=== PATIENT | female | born 1955 | race Caucasian/White ===

== ENCOUNTER 2016-12-27 16:43 | Emergency (ER) | payer MEDICARE ==
[2016-12-27 16:54] VITALS: TEMP 97.7
[2016-12-27] MEDS ORDERED: methylPREDNISolone SOD SUCCI 125 MG/2 ML VIAL IV STA (18:16)
[2016-12-27] MEDS ORDERED: IPRATROPIUM-ALBUTEROL 3 ML NEB INHALATION STA (18:16)
--- NOTE | 2016-12-27 18:21 | ED ---
General Adult HPI - General Chief complaint: Upper Respiratory Infection Stated complaint: Right Shoulder Pain Time Seen by Provider: 12/27/16 17:57 Source: patient Mode of arrival: ambulatory Limitations: no limitations - History of Present Illness Initial comments: Patient is a 61-year-old female with history of tobacco abuse, CAD, COPD, hypertension presenting with 3 days of cough, congestion, shortness of breath. Patient states worsening cough and shortness of breath. She describes sputum as green. She denies runny nose, fever and chills. Patient tried her inhaler without any relief. Patient admits to sick contacts at home. Denies chest pain , nausea, vomiting, diarrhea, abdominal pain. Patient denies influenza vaccination. Patient states she had a pneumonia vaccine. Patient denies history of DVT/PE, estrogen use, recent travel/trauma/surgery, cancer. - Related Data Home Medications Medication Instructions Recorded Confirmed Dextroamphetamine/Amphetamine 30 mg PO BID 03/11/16 12/27/16 [Adderall] HYDROcodone/APAP 10-325MG [[place] 1 tab PO BID PRN 03/11/16 12/27/16 10-325] LORazepam [Ativan] 1 mg PO TID PRN 03/11/16 12/27/16 Lisinopril [Zestril] 20 mg PO DAILY 03/11/16 12/27/16 Methadone [Dolophine] 30 mg PO TID 03/11/16 12/27/16 Metoprolol Tartrate [Lopressor] 25 mg PO DAILY 03/11/16 12/27/16 Nitroglycerin Sl Tabs [Nitrostat] 0.4 mg SUBLINGUAL Q5M PRN 03/11/16 12/27/16 Omeprazole 20 mg PO DAILY 03/11/16 12/27/16 Atorvastatin [Lipitor] 10 mg PO HS 12/27/16 12/27/16 Hydroxychloroquine Sulfate 200 mg PO DAILY 12/27/16 12/27/16 [Plaquenil] Mometasone/Formoterol [Dulera 200 2 puff INHALATION RT-BID 12/27/16 12/27/16 Mcg/5 Mcg Inhaler] Venlafaxine HCl ER [Effexor Xr] 75 mg PO DAILY 12/27/16 12/27/16 rOPINIRole HCL [Requip] 0.5 mg PO HS 12/27/16 12/27/16 Previous Rx's Medication Instructions Recorded Levofloxacin [Levaquin] 750 mg PO DAILY #5 tab 12/27/16 predniSONE 40 mg PO DAILY #10 tab 12/27/16 Allergies Allergy/AdvReac Type Severity Reaction Status Date / Time No Known Allergies Allergy Verified 12/27/16 18:07 Review of Systems ROS Statement: Those systems with pertinent positive or pertinent negative responses have been documented in the HPI. Constitutional: No fever and no chills. HENT: +congestion, no rhinorrhea and no sore throat. Eyes: No discharge and no redness. Respiratory: +cough and +shortness of breath. Cardiovascular: No chest pain and no palpitations. Gastrointestinal: No nausea, no vomiting, no abdominal pain and no diarrhea. Genitourinary: No dysuria and no hematuria. Musculoskeletal: No back pain and no arthralgias. Skin: No pallor and no rash. Neurological: No dizziness and No headaches. ROS Other: All systems not noted in ROS Statement are negative. Past Medical History Past Medical History: Coronary Artery Disease (CAD), Chest Pain / Angina, COPD, Fibromyalgia, Hypertension, Renal Disease Additional Past Medical History / Comment(s): lupus History of Any Multi-Drug Resistant Organisms: None Reported Past Surgical History: Hysterectomy Additional Past Surgical History / Comment(s): esophagheal sinus surg Past Psychological History: Depression Smoking Status: Current every day smoker Past Alcohol Use History: None Reported Past Drug Use History: None Reported General Exam - General Exam Comments Initial Comments: Constitutional: Patient appears well-developed and well-nourished. No distress. Head: Normocephalic and atraumatic. Eyes: Conjunctivae and EOM are normal. Right eye exhibits no discharge. Left eye exhibits no discharge. No scleral icterus. Neck: Normal range of motion. Neck supple. Cardiovascular: Normal rate and regular rhythm. No murmur heard. Pulmonary/Chest: Effort normal and breath sounds normal. No respiratory distress. No wheezes. Abdominal: Soft. No distension. There is no tenderness. There is no rebound and no guarding. Musculoskeletal: Normal range of motion. No edema or tenderness. Neurological: Patient alert and oriented to person, place, and time. Skin: Skin is warm and dry. Not diaphoretic. Nursing notes and vitals reviewed. Limitations: no limitations Course Vital Signs 12/27/16 12/27/16 12/27/16 16:52 17:27 18:41 Temperature 97.7 F Pulse Rate 70 57 L Respiratory 20 14 15 Rate Blood Pressure 179/80 182/91 O2 Sat by Pulse 99 97 Oximetry 12/27/16 12/27/16 12/27/16 19:00 19:08 19:20 Temperature Pulse Rate 60 68 Respiratory 14 Rate Blood Pressure 182/91 O2 Sat by Pulse 98 Oximetry 12/27/16 12/27/16 12/27/16 19:21 19:39 19:52 Temperature Pulse Rate 68 67 76 Respiratory 14 Rate Blood Pressure O2 Sat by Pulse 98 Oximetry 12/27/16 22:15 Temperature Pulse Rate 70 Respiratory 14 Rate Blood Pressure 160/70 O2 Sat by Pulse 98 Oximetry EKG Findings - EKG Comments: EKG Findings:: Rate 58. Sinus bradycardia. No ST-T wave changes. HI internal normal . QRS interval normal. QTc duration normal. Medical Decision Making - Medical Decision Making Patient is a 61-year-old female with history of tobacco abuse, CAD, COPD, fibromyalgia, hypertension, lupus presenting with cough, shortness breath, congestion the past 3 days. Patient was not wheezing or any respiratory crackles on exam. She was given breathing treatments and steroids with some improvement. Laboratory work showed an unremarkable CBC, BMP, troponin, magnesium. Influenza was negative. D-dimer was mildly elevated at 0.52. Chest x-ray was unremarkable. EKG shows sinus bradycardia without ST or T-wave changes.. Given patient's mildly elevated d-dimer, history of lupus, age greater than 50 as well as complaints of shortness of breath without any identification of wheezing or crackles a CTA was ordered. CTA was unremarkable for PE. CT did show a hiatal hernia. CT shows showed a right lateral lower lobe pneumonia. Patient without history of hospitalization or detention stay in the last 3 months. Prior to discharge, patient was resting comfortably in bed. Course of stay improved. Denies pain. Discussed physical exam and diagnostic tests with patient. Questions answered and patient is agreeable to discharge with close follow up with Primary Care Physician. Instructed to return to Emergency Department if symptoms worsen. - Lab Data Result diagrams: 12/27/16 18:43 12/27/16 18:43 Lab Results 12/27/16 12/27/16 12/27/16 Range/Units 18:43 18:43 18:43 WBC 5.4 (3.8-10.6) k/uL RBC 3.98 (3.80-5.40) m/uL Hgb 12.2 (11.4-16.0) gm/dL Hct 36.8 (34.0-46.0) % MCV 92.4 (80.0-100.0) fL MCH 30.7 (25.0-35.0) pg MCHC 33.3 (31.0-37.0) g/dL RDW 13.1 (11.5-15.5) % Plt Count 220 (150-450) k/uL Neutrophils % 48 % Lymphocytes % 34 % Monocytes % 8 % Eosinophils % 6 % Basophils % 1 % Neutrophils # 2.6 (1.3-7.7) k/uL Lymphocytes # 1.8 (1.0-4.8) k/uL Monocytes # 0.5 (0-1.0) k/uL Eosinophils # 0.3 (0-0.7) k/uL Basophils # 0.0 (0-0.2) k/uL D-Dimer 0.52 (<0.60) mg/L FEU Sodium 142 (137-145) mmol/L Potassium 4.6 (3.5-5.1) mmol/L Chloride 104 (98-107) mmol/L Carbon Dioxide 28 (22-30) mmol/L Anion Gap 10 mmol/L BUN 12 (7-17) mg/dL Creatinine 0.99 (0.52-1.04) mg/dL Est GFR (MDRD) Af Amer >60 (>60 ml/min/1.73 sqM) Est GFR (MDRD) Non-Af 57 (>60 ml/min/1.73 sqM) Glucose 75 (74-99) mg/dL Calcium 8.9 (8.4-10.2) mg/dL Magnesium 1.8 (1.6-2.3) mg/dL Troponin I (0.000-0.034) ng/mL Influenza Type A RNA (Not Detectd) Influenza Type B (PCR) (Not Detectd) 12/27/16 12/27/16 Range/Units 18:43 20:00 WBC (3.8-10.6) k/uL RBC (3.80-5.40) m/uL Hgb (11.4-16.0) gm/dL Hct (34.0-46.0) % MCV (80.0-100.0) fL MCH (25.0-35.0) pg MCHC (31.0-37.0) g/dL RDW (11.5-15.5) % Plt Count (150-450) k/uL Neutrophils % % Lymphocytes % % Monocytes % % Eosinophils % % Basophils % % Neutrophils # (1.3-7.7) k/uL Lymphocytes # (1.0-4.8) k/uL Monocytes # (0-1.0) k/uL Eosinophils # (0-0.7) k/uL Basophils # (0-0.2) k/uL D-Dimer (<0.60) mg/L FEU Sodium (137-145) mmol/L Potassium (3.5-5.1) mmol/L Chloride (98-107) mmol/L Carbon Dioxide (22-30) mmol/L Anion Gap mmol/L BUN (7-17) mg/dL Creatinine (0.52-1.04) mg/dL Est GFR (MDRD) Af Amer (>60 ml/min/1.73 sqM) Est GFR (MDRD) Non-Af (>60 ml/min/1.73 sqM) Glucose (74-99) mg/dL Calcium (8.4-10.2) mg/dL Magnesium (1.6-2.3) mg/dL Troponin I <0.012 (0.000-0.034) ng/mL Influenza Type A RNA Not Detected (Not Detectd) Influenza Type B (PCR) Not Detected (Not Detectd) Disposition Clinical Impression: Community acquired pneumonia, Pneumonia Disposition: HOME SELF-CARE Condition: Good Instructions: Upper Respiratory Infection (ED), Bacterial Pneumonia (ED) Prescriptions: Levofloxacin [Levaquin] 750 mg PO DAILY #5 tab predniSONE 40 mg PO DAILY #10 tab Referrals: Nael Che MD [Primary Care Provider] - 1-2 days
--- NOTE | 2016-12-27 19:00 | XR ---
EXAMINATION TYPE: XR chest 2V DATE OF EXAM: 12/27/2016 6:53 PM COMPARISON: 09/14/2013 HISTORY: Cough and congestion TECHNIQUE: Frontal and lateral views of the chest are obtained. FINDINGS: Heart and mediastinum are normal. Lungs are clear. Diaphragm is normal. Bony thorax is int act. IMPRESSION: Normal chest. No change.
[2016-12-27 19:42] LABS: Basophils % (A) 1 %; CH 30.7; CHCM 33.3; Eosinophils # (A) 0.3 k/uL (0-0.7); Eosinophils % (A) 6 %; HCT 36.8 % (34.0-46.0); HDW 2.63; HGB 12.2 gm/dL (11.4-16.0); Luc # (Auto) 0.16; Luc % (Auto) 3; Lymphocytes # (A) 1.8 k/uL (1.0-4.8); Lymphocytes % (A) 34 %; MCH 30.7 pg (25.0-35.0); MCHC 33.3 g/dL (31.0-37.0); MCV 92.4 fL (80.0-100.0); Mean Platelet Volume 6.4; Monocytes # (A) 0.5 k/uL (0-1.0); Monocytes % (A) 8 %; Neutrophils # (A) 2.6 k/uL (1.3-7.7); Neutrophils % (A) 48 %; RBC 3.98 m/uL (3.80-5.40); RDW 13.1 % (11.5-15.5); WBC 5.4 k/uL (3.8-10.6)
[2016-12-27 19:53] VITALS: RESP 14
[2016-12-27 20:04] LABS: Anion Gap 10 mmol/L; Blood Urea Nitrogen 12 mg/dL (7-17); Calcium 8.9 mg/dL (8.4-10.2); Carbon Dioxide 28 mmol/L (22-30); Chloride 104 mmol/L (98-107); Glucose 75 mg/dL (74-99); Magnesium 1.8 mg/dL (1.6-2.3); Non-African American GFR(MDRD) 57 (>60 ml/min/1.73 sqM); Potassium 4.6 mmol/L (3.5-5.1); Sodium 142 mmol/L (137-145)
[2016-12-27] MEDS ORDERED: RX INFO: IV CONTRAST WAS GIVEN 1 EACH MISC MISCELLANE PRN (20:46)
--- NOTE | 2016-12-27 21:58 | CT ---
EXAMINATION TYPE: CT angio chest DATE OF EXAM: 12/27/2016 9:41 PM COMPARISON: 01/24/2013 HISTORY: shortness of breath CT DLP: 167.4 mGycm Automated exposure control for dose reduction was used. CONTRAST: CTA scan of the thorax is performed with IV Contrast, patient injected with 100 mL of Omnipaque 350, pulmonary embolism protocol. . FINDINGS: There are mild emphysematous changes in the upper lobes. Heart size is normal. There is no pericardial effusion. There is a moderate hiatal hernia. There is a patchy area of infiltrate at the right lung base. There are no filling defects in the pulmonary keely alex. There is no evidence of aortic aneurysm or dissection. There is no mediastinal adenopathy. Ther e are no hilar masses. IMPRESSION: NO EVIDENCE OF PULMONARY EMBOLISM. HIATAL HERNIA. THERE IS SOME PATCHY PNEUMONIA IN THE LATERAL BASAL SEGMENT OF THE RIGHT LOWER LOBE THAT IS NEW COMPARED TO OLD EXAM. THERE IS CLEARING OF INFILTRATE IN THE POSTERIOR RIGHT LOWER LOBE COMPARED TO OLD EXAM. EMPHYSEMA.
[2016-12-27 22:16] VITALS: BP 160/70; PULSE 70
== END 2016-12-27 22:15 | disposition home or self-care (01) ==
LOC: EC 16:43
DX: J18.9 Pneumonia, unspecified organism (principal); M32.9 Systemic lupus erythematosus, unspecified; I10 Essential (primary) hypertension; M79.7 Fibromyalgia; J44.9 Chronic obstructive pulmonary disease, unspecified; I25.10 Atherosclerotic heart disease of native coronary artery without angina pectoris; Z79.899 Other long term (current) drug therapy; F32.9 Major depressive disorder, single episode, unspecified; F17.200 Nicotine dependence, unspecified, uncomplicated; K44.9 Diaphragmatic hernia without obstruction or gangrene
CPT/HCPCS: 36415; 94640 ×2; 93005; 85379; 80048; 83735; 84484; 85025; 87502; 71020; 71275; 99285; 96374; J2930; Q9967

== ENCOUNTER 2017-02-27 09:40 | Day surgery (SDC) | payer MEDICARE ==
[2017-02-26 09:42] VITALS: BMI 24.3
[~2017-02-27 09:40] MED LIST: LACTATED RINGERS 1,000 ML IV SCH
[2017-02-27 09:55] VITALS: RESP 18; TEMP 98
[2017-02-27] MEDS ORDERED: LIDOCAINE 1% 20 ML VIAL (10MG/ML) FOR IV START INTRADERMA ONE (09:55)
[2017-02-27] MEDS ORDERED: LACTATED RINGERS 1,000 ML IV ONE (09:55)
[2017-02-27] MEDS ORDERED: PROPOFOL 10 MG/ML 20 ML VIAL IV ONE (10:36)
[2017-02-27] MEDS ORDERED: LIDOCAINE 1% INJ 10MG/ML (20 ML MDV) ONE (10:36)
[2017-02-27] MEDS ORDERED: GLYCOPYRROLATE 0.2 MG/ML 2 ML VIAL ONE (10:36)
--- NOTE | 2017-02-27 10:49 | P.PCN ---
Date of Procedure: 02/27/17 Procedure(s) Performed: BRIEF HISTORY: Patient is a 62-year-old, pleasant, white female, scheduled for an upper endoscopy as a part of evaluation of intermittent dysphagia to solids for the last few months duration. She is hence scheduled for an upper endoscopy with a possible dilation today. She has history of GERD and is on omeprazole 20 mg daily. PROCEDURE PERFORMED: Esophagogastroduodenoscopy with dilation. PREOPERATIVE DIAGNOSIS: Intermittent dysphagia to solids and GERD. IV sedation per anesthesia. PROCEDURE: After informed consent was obtained, the patient was brought into the endoscopy unit. IV sedation was administered by Anesthesia under continuous monitoring. Initially the Olympus GIF-140 video endoscope was inserted into the mouth. Esophagus intubated without any difficulty. It was gradually advanced into the stomach and duodenum and carefully examined. The bulb and the second part of the duodenum appeared normal. The scope at this time was withdrawn to the stomach, adequately insufflated with air, and upon careful examination, mucosa of the antrum, body, cardia and the fundus appeared normal. The scope was then withdrawn into the esophagus. The GE junction was located at 35 cm from the incisors. Small to moderate size hiatal hernia noted. There was a widely patent distal esophageal Schatzki's ring identified. At this time this was dilated using 18-20 mm balloon. Initially it was dilated to 18 mm for total of 1 minute following with some oozing was identified and hence further dilation was not performed. The rest of the esophagus appeared normal. There were no erosions or ulcerations seen and the patient tolerated the procedure well. IMPRESSION: 1. Distal esophageal Schatzki's ring status post balloon dilation using 18 mm TTS balloon as described above. 2. Small to moderate size hiatal hernia. RECOMMENDATIONS: The findings of this examination were discussed with the patient as well as her family. She was advised to be on a clear liquid diet and advance as tolerated. She will remain on Prilosec 20 mg daily and follow antireflux measures.
[2017-02-27 11:09] VITALS: BP 120/74; PULSE 78
== END 2017-02-27 11:45 | disposition home or self-care (01) ==
LOC: ORWHC2ENDO 09:40
PROVIDERS: ATTEND Internal Medicine Gastroenterology
DX: K22.2 Esophageal obstruction (principal); K21.9 Gastro-esophageal reflux disease without esophagitis; K44.9 Diaphragmatic hernia without obstruction or gangrene; I25.10 Atherosclerotic heart disease of native coronary artery without angina pectoris; I10 Essential (primary) hypertension; E78.5 Hyperlipidemia, unspecified; J44.9 Chronic obstructive pulmonary disease, unspecified; F17.200 Nicotine dependence, unspecified, uncomplicated; F32.9 Major depressive disorder, single episode, unspecified; G89.29 Other chronic pain; Z79.899 Other long term (current) drug therapy; Z90.710 Acquired absence of both cervix and uterus; Z79.51 Long term (current) use of inhaled steroids
CPT/HCPCS: 43249; J2001; J2704; C1726

== ENCOUNTER → 2017-04-28 | Outpatient (CLI) | payer MEDICARE ==
[2017-04-28 11:16] LABS: CH 31.2; CHCM 32.8; HCT 38.7 % (34.0-46.0); HDW 2.38; HGB 12.6 gm/dL (11.4-16.0); MCH 31.1 pg (25.0-35.0); MCHC 32.5 g/dL (31.0-37.0); MCV 95.8 fL (80.0-100.0); RBC 4.04 m/uL (3.80-5.40); WBC 6.5 k/uL (3.8-10.6)
[2017-04-28 11:23] LABS: Calcium 9.6 mg/dL (8.4-10.2); Potassium 4.6 mmol/L (3.5-5.1); Total Bilirubin 0.7 mg/dL (0.2-1.3); Total Protein 7.4 g/dL (6.3-8.2)
== END | disposition home or self-care (01) ==
LOC: LABWHC1 10:48
PROVIDERS: ATTEND Family Medicine
DX: I35.1 Nonrheumatic aortic (valve) insufficiency (principal); I25.10 Atherosclerotic heart disease of native coronary artery without angina pectoris; F17.210 Nicotine dependence, cigarettes, uncomplicated; Z71.6 Tobacco abuse counseling
CPT/HCPCS: 36415; 80053; 80061; 84443; 85027

== ENCOUNTER → 2017-06-25 | Outpatient (CLI) | payer MEDICARE ==
[2017-06-25 12:17] LABS: CHCM 33.7; HCT 36.1 % (34.0-46.0); HDW 2.62; HGB 12.4 gm/dL (11.4-16.0); MCH 31.7 pg (25.0-35.0); MCHC 34.3 g/dL (31.0-37.0); MCV 92.5 fL (80.0-100.0); Mean Platelet Volume 6.9; RBC 3.91 m/uL (3.80-5.40); RDW 13.4 % (11.5-15.5); WBC 5.1 k/uL (3.8-10.6)
[2017-06-25 12:25] LABS: Anion Gap 10 mmol/L; Blood Urea Nitrogen 17 mg/dL (7-17); Calcium 9.2 mg/dL (8.4-10.2); Carbon Dioxide 27 mmol/L (22-30); Chloride 106 mmol/L (98-107); Glucose 72 mg/dL (74-99); Non-African American GFR(MDRD) 50 (>60 ml/min/1.73 sqM); Potassium 4.2 mmol/L (3.5-5.1); Sodium 143 mmol/L (137-145)
[2017-06-25 15:21] LABS: Appearance,Urine Clear (Clear); Bilirubin,Urine Negative (Negative); Glucose,Urine (UA) Negative (Negative); Ketones,Urine Negative (Negative); Leukocyte Esterase,Urine Small (Negative); Mucus,Urine Rare /hpf; Nitrite,Urine Negative (Negative); PH, Urine 5.5 (5.0-8.0); Particle Count 3612; Protein,Urine Trace (Negative); Specific Gravity,Urine 1.021 (1.001-1.035); Squamous Epithelial Cell,Urine 3 /hpf (0-4); UA Billing (MACRO vs. MICRO) MICRO; Urobilinogen,Urine <2.0 mg/dL (<2.0); WBC,Urine 5 /hpf (0-5)
== END ==
LOC: LABWHC1 11:37
PROVIDERS: ATTEND Internal Medicine Nephrology
DX: N18.3 Chronic kidney disease, stage 3 (moderate) (principal); N25.81 Secondary hyperparathyroidism of renal origin
CPT/HCPCS: 36415; 80048; 80069; 81001; 82306; 82570; 83970; 84156; 85027

== ENCOUNTER → 2017-09-29 | Outpatient (CLI) | payer MEDICARE ==
--- NOTE | 2017-09-30 10:50 | MM ---
Reason for exam: screening (asymptomatic). Last mammogram was performed 1 year and 2 months ago. History: Patient is postmenopausal. Benign excisional biopsy of the right breast, 1995. Took estrogen for 16 years beginning at age 45. Physical Findings: A clinical breast exam by your physician is recommended on an annual basis and results should be correlated with mammographic findings. MG 3D Screening Mammo W/Cad Bilateral CC and MLO view(s) were taken. Prior study comparison: August 06, 2016, bilateral MG 3d screening mammo w/cad. September 23, 2013, bilateral digital screening mammo w/CAD. There are scattered fibroglandular densities. There is no discrete abnormality. ASSESSMENT: Negative, BI-RAD 1 RECOMMENDATION: Routine screening mammogram of both breasts in 1 year.
== END | disposition home or self-care (01) ==
LOC: RADMAMWWP 11:01
PROVIDERS: ATTEND Family Medicine
DX: Z12.31 Encounter for screening mammogram for malignant neoplasm of breast (principal)
CPT/HCPCS: 77063; G0202

== ENCOUNTER → 2017-09-29 | Outpatient (CLI) | payer MEDICARE ==
--- NOTE | 2017-09-29 12:57 | XR ---
Cervical spine HISTORY: Neck pain, radiculopathy 5 views of the cervical spine Multilevel facet arthropathy is noted. Multilevel foraminal encroachment is present due to lateral ex tension of endplates especially C3-4, C5-6. There is multilevel spondylosis. Cervical vertebral kamila s show preserved height and bone mineralization. Anterolisthesis grade 1 C2-3. Loss of disc height pr esent at the intervertebral levels C3-4, C4-5, C5-6 and C6-7. IMPRESSION: Degenerative disc disease. Consider cervical MRI.
--- NOTE | 2017-09-29 13:02 | XR ---
Lumbar spine HISTORY: Pain, radiculopathy 3 views of the lumbar spine There is a marked dextroscoliosis centered at L2. Rotatory component suspected. There is multilevel s pondylosis. Lumbar vertebral bodies show preserved height. Bone mineralization is mildly reduced. Los s of disc height present at the intervertebral levels especially L5-S1 there is associated vacuum phe nomenon. Sclerosis present in the posterior elements compatible with facet arthropathy. There are vas cular calcifications noted within the aorta and pelvis. IMPRESSION: Degenerative disc disease, facet arthropathy, rotatory scoliosis, osteopenia, additional findings above.
== END | disposition home or self-care (01) ==
LOC: RADXRMAIN 11:19
PROVIDERS: ATTEND Family Medicine
DX: M51.16 Intervertebral disc disorders with radiculopathy, lumbar region (principal); M50.30 Other cervical disc degeneration, unspecified cervical region; M46.86 Other specified inflammatory spondylopathies, lumbar region; M41.9 Scoliosis, unspecified; M85.80 Other specified disorders of bone density and structure, unspecified site
CPT/HCPCS: 72050; 72100

== ENCOUNTER → 2017-12-07 | Outpatient (CLI) | payer MEDICARE ==
[2017-12-07 10:11] LABS: HCT 37.9 % (34.0-46.0); HGB 12.5 gm/dL (11.4-16.0); MCH 31.3 pg (25.0-35.0); MCV 94.8 fL (80.0-100.0); Mean Platelet Volume 7.6; Platelet Count 215 k/uL (150-450); RDW 13.9 % (11.5-15.5); WBC 4.9 k/uL (3.8-10.6)
[2017-12-07 10:20] LABS: Calcium 9.4 mg/dL (8.4-10.2); Magnesium 1.8 mg/dL (1.6-2.3); Phosphorus 3.9 mg/dL (2.5-4.5); Potassium 4.5 mmol/L (3.5-5.1); Uric Acid 4.9 mg/dL (3.7-7.4)
[2017-12-07 10:33] LABS: Appearance,Urine Clear (Clear); Bilirubin,Urine Negative (Negative); Blood,Urine Negative (Negative); Color,Urine Yellow; Glucose,Urine (UA) Negative (Negative); Hyaline Casts,Urine 3 /lpf (0-2); Ketones,Urine Negative (Negative); Leukocyte Esterase,Urine Small (Negative); Mucus,Urine Rare /hpf; Nitrite,Urine Negative (Negative); PH, Urine 5.5 (5.0-8.0); Protein,Urine Trace (Negative); RBC,Urine 1 /hpf (0-5); Specific Gravity,Urine 1.021 (1.001-1.035); Squamous Epithelial Cell,Urine 2 /hpf (0-4); Urobilinogen,Urine <2.0 mg/dL (<2.0); WBC,Urine 2 /hpf (0-5)
[2017-12-07 10:53] LABS: Creatinine,Urine Random 198.4 mg/dL
[2017-12-07 15:07] LABS: Iron Saturation 17.61 (12.00-45.00)
[2017-12-07 15:16] LABS: Vitamin D 25 Hydroxy 31.7 ng/mL (30.0-100.0)
[2017-12-07 19:45] LABS: Parathyroid Hormone Intact 101.1 pg/mL (14.0-72.0)
== END | disposition home or self-care (01) ==
LOC: LABWHC1 09:41
PROVIDERS: ATTEND Nurse Practitioner Family
DX: N18.3 Chronic kidney disease, stage 3 (moderate) (principal); E83.10 Disorder of iron metabolism, unspecified; N25.81 Secondary hyperparathyroidism of renal origin; N39.0 Urinary tract infection, site not specified; D64.9 Anemia, unspecified; M10.9 Gout, unspecified; R80.9 Proteinuria, unspecified
CPT/HCPCS: 36415; 80048; 81001; 82306; 82570; 82728; 83540; 83550; 83735; 83970; 84100; 84156; 84550; 85027

== ENCOUNTER 2018-01-18 11:26 | Emergency (ER) | payer MEDICARE ==
[2018-01-18 11:40] VITALS: BP 134/77; PULSE 78; RESP 16; TEMP 98.7
--- NOTE | 2018-01-18 12:32 | XR ---
EXAMINATION TYPE: XR wrist complete LT DATE OF EXAM: 01/18/2018 CLINICAL HISTORY: Wrist pain for one week. TECHNIQUE: Frontal, lateral, scaphoid, and oblique images of the left wrist are obtained. COMPARISON: None FINDINGS: There is no acute fracture/dislocation evident in the left wrist. There is subchondral cys t in the radial aspect of the lunate. The joint spaces in the left wrist appear within normal limits. The overlying soft tissue appears unremarkable. IMPRESSION: There is no acute fracture or dislocation in the left wrist.
--- NOTE | 2018-01-18 12:33 | ED ---
Extremity Problem HPI - General Chief complaint: Extremity Problem,Nontraumatic Stated complaint: Wrist pain Time Seen by Provider: 01/18/18 12:02 Source: patient Mode of arrival: ambulatory Limitations: no limitations - History of Present Illness Initial comments: 62-year-old female patient presents to the emergency department today complaining of left dorsal wrist pain. Patient states that she has had the pain for the last week. She states that the pain came out of nowhere. She denies any injury to the hand or wrist. She states that it hurts whenever she flexes the wrist. She denies any numbness or tingling to the hand. Denies any burning type pain. States it is sharp at times, but mostly dull. She denies any previous injuries to the wrist. States she did take her home methadone for pain relief. Patient denies any headache, neck pain, back pain, chest pain, shortness of breath, dizziness, weakness, abdominal pain, nausea, vomiting, or difficulties with bowel movements or urination. - Related Data Home Medications Medication Instructions Recorded Confirmed Dextroamphetamine/Amphetamine 30 mg PO BID 03/11/16 01/18/18 [Adderall] HYDROcodone/APAP 10-325MG [[place] 1 tab PO DAILY PRN 03/11/16 01/18/18 10-325] LORazepam [Ativan] 1 mg PO HS 03/11/16 01/18/18 Lisinopril [Zestril] 20 mg PO DAILY 03/11/16 01/18/18 Methadone [Dolophine] 30 mg PO TID 03/11/16 01/18/18 Metoprolol Tartrate [Lopressor] 25 mg PO DAILY 03/11/16 01/18/18 Nitroglycerin Sl Tabs [Nitrostat] 0.4 mg SUBLINGUAL Q5M PRN 03/11/16 01/18/18 Omeprazole 20 mg PO DAILY 03/11/16 01/18/18 Atorvastatin [Lipitor] 10 mg PO HS 12/27/16 01/18/18 Hydroxychloroquine Sulfate 200 mg PO DAILY 12/27/16 01/18/18 [Plaquenil] Mometasone/Formoterol [Dulera 200 2 puff INHALATION RT-BID 12/27/16 01/18/18 Mcg/5 Mcg Inhaler] Venlafaxine HCl ER [Effexor Xr] 75 mg PO QAM 12/27/16 01/18/18 rOPINIRole HCL [Requip] 0.5 mg PO HS 12/27/16 01/18/18 Multivit-Min/FA/Lycopen/Lutein 1 tab PO DAILY 02/26/17 01/18/18 [Centrum Silver Tablet] Albuterol Inhaler [Ventolin Hfa 1 - 2 puff INHALATION RT-Q6H PRN 01/18/18 Inhaler] Doxepin HCl 50 mg PO HS 01/18/18 01/18/18 buPROPion XL [Wellbutrin Xl] 150 mg PO DAILY 01/18/18 01/18/18 Allergies Allergy/AdvReac Type Severity Reaction Status Date / Time No Known Allergies Allergy Verified 01/18/18 12:21 Review of Systems ROS Statement: Those systems with pertinent positive or pertinent negative responses have been documented in the HPI. ROS Other: All systems not noted in ROS Statement are negative. Past Medical History Past Medical History: Coronary Artery Disease (CAD), Chest Pain / Angina, COPD, Fibromyalgia, Hypertension, Renal Disease Additional Past Medical History / Comment(s): lupus History of Any Multi-Drug Resistant Organisms: None Reported Past Surgical History: Hysterectomy Additional Past Surgical History / Comment(s): esophagheal ,sinus surg Past Anesthesia/Blood Transfusion Reactions: No Reported Reaction Past Psychological History: Depression Smoking Status: Current every day smoker Past Alcohol Use History: None Reported Past Drug Use History: None Reported - Past Family History Mother Family Medical History: Cancer Additional Family Medical History / Comment(s): lung Father Family Medical History: No Reported History Additional Family Medical History / Comment(s): in MVA General Exam Limitations: no limitations General appearance: alert, in no apparent distress, other (This is a well- developed, well-nourished adult female patient in no acute distress. Vital signs upon presentation are temperature 98.7F, pulse 78, respirations 16, blood pressure 134/77, pulse ox 97% on room air.) Respiratory exam: Present: normal lung sounds bilaterally. Absent: respiratory distress, wheezes, rales, rhonchi, stridor Cardiovascular Exam: Present: regular rate, normal rhythm, normal heart sounds. Absent: systolic murmur, diastolic murmur, rubs, gallop, clicks Extremities exam: Present: normal inspection, full ROM, normal capillary refill , other (Patient exhibit some tenderness over the dorsum of the left wrist. Skin is pink, warm, and dry. Cap refill is less than 3 seconds. Radial pulses 2+ and equal bilaterally.). Absent: tenderness, pedal edema, joint swelling, calf tenderness Neurological exam: Present: alert, oriented X3, CN II-XII intact Psychiatric exam: Present: normal affect, normal mood Skin exam: Present: warm, dry, intact, normal color. Absent: rash Course Vital Signs 01/18/18 11:38 Temperature 98.7 F Pulse Rate 78 Respiratory 16 Rate Blood Pressure 134/77 O2 Sat by Pulse 97 Oximetry Medical Decision Making - Medical Decision Making 62-year-old female patient presents to the emergency department today for evaluation of left wrist pain. Physical examination is unremarkable. Patient does have full range of motion however with pain. Neurovascular status is intact. X-rays negative for any acute osseous abdomen is however does show a subchondral cyst over the radial aspect of the lunate. Did discuss the findings with the patient and informed her this could be contributing to her discomfort however she is instructed to follow-up with orthopedics for recheck in 1-2 days which is instructed to return here immediately for any new, worsening, or concerning symptoms. She verbalizes understanding and agrees with this plan. - Radiology Data Radiology results: report reviewed, image reviewed 4 views of the left wrist are obtained. There is no acute fracture dislocation evident. There is subchondral cyst in the radial aspect of the lunate. There are joint spaces in the left wrist appear within normal limits. The overlying soft tissue appears unremarkable. Impression by Dr. Goodman shows no acute fracture or dislocation of the left wrist. Disposition Clinical Impression: Subchondral bone cyst Disposition: HOME SELF-CARE Condition: Good Instructions: Arthralgia (ED) Additional Instructions: Continue taking home pain medication as directed for symptom relief. Take anti- inflammatory if you are able to take this, ibuprofen or naproxen are good choices. Follow-up with orthopedics for further evaluation. Return here immediately for any new, worsening, or concerning symptoms. Referrals: Nael Che MD [Primary Care Provider] - 1-2 days Jorge De La Cruz DO [Doctor of Osteopathic Medicine] - 1-2 days Time of Disposition: 12:42
== END 2018-01-18 12:49 | disposition home or self-care (01) ==
LOC: EC 11:26
DX: M85.432 Solitary bone cyst, left ulna and radius (principal); I25.119 Atherosclerotic heart disease of native coronary artery with unspecified angina pectoris; J44.9 Chronic obstructive pulmonary disease, unspecified; M79.7 Fibromyalgia; I10 Essential (primary) hypertension; F32.9 Major depressive disorder, single episode, unspecified; Z79.51 Long term (current) use of inhaled steroids; Z79.891 Long term (current) use of opiate analgesic; Z79.899 Other long term (current) drug therapy
CPT/HCPCS: 99283

== ENCOUNTER → 2018-06-11 | Outpatient (CLI) | payer MEDICARE ==
[2018-06-11 10:58] LABS: Appearance,Urine Clear (Clear); Bilirubin,Urine Negative (Negative); Blood,Urine Negative (Negative); Color,Urine Yellow; Glucose,Urine (UA) Negative (Negative); Ketones,Urine Negative (Negative); Leukocyte Esterase,Urine Negative (Negative); Nitrite,Urine Negative (Negative); PH, Urine 5.5 (5.0-8.0); Protein,Urine Negative (Negative); Specific Gravity,Urine 1.013 (1.001-1.035); Urobilinogen,Urine <2.0 mg/dL (<2.0)
[2018-06-11 11:09] LABS: HCT 38.3 % (34.0-46.0); HGB 12.4 gm/dL (11.4-16.0); MCH 29.7 pg (25.0-35.0); MCHC 32.5 g/dL (31.0-37.0); MCV 91.3 fL (80.0-100.0); Mean Platelet Volume 7.1; Platelet Count 206 k/uL (150-450); RBC 4.19 m/uL (3.80-5.40); RDW 14.4 % (11.5-15.5)
[2018-06-11 11:25] LABS: Calcium 9.1 mg/dL (8.4-10.2); Magnesium 1.8 mg/dL (1.6-2.3); Phosphorus 3.5 mg/dL (2.5-4.5); Potassium 4.7 mmol/L (3.5-5.1); Uric Acid 5.8 mg/dL (3.7-7.4)
[2018-06-11 11:28] LABS: Creatinine,Urine Random 136.5 mg/dL
[2018-06-11 16:15] LABS: Iron Saturation 21.58 (12.00-45.00); Parathyroid Hormone Intact 97.4 pg/mL (14.0-72.0)
[2018-06-11 16:24] LABS: Vitamin D 25 Hydroxy 34.2 ng/mL (30.0-100.0)
== END | disposition home or self-care (01) ==
LOC: LABWHC1 10:16
PROVIDERS: ATTEND Nurse Practitioner Family
DX: N18.3 Chronic kidney disease, stage 3 (moderate) (principal); D63.1 Anemia in chronic kidney disease; N25.81 Secondary hyperparathyroidism of renal origin; E55.9 Vitamin D deficiency, unspecified; E21.3 Hyperparathyroidism, unspecified
CPT/HCPCS: 36415; 80048; 81003; 82306; 82570; 82728; 83540; 83550; 83735; 83970; 84100; 84156; 84550; 85027

== ENCOUNTER → 2019-07-05 | Outpatient (CLI) | payer MEDICARE ==
[2019-07-05 16:46] LABS: HGB 12.8 gm/dL (11.4-16.0); MCH 31.6 pg (25.0-35.0); MCHC 33.6 g/dL (31.0-37.0); MCV 93.9 fL (80.0-100.0); Platelet Count 249 k/uL (150-450); RBC 4.05 m/uL (3.80-5.40); RDW 13.5 % (11.5-15.5); WBC 6.6 k/uL (3.8-10.6)
[2019-07-05 16:51] LABS: Appearance,Urine Clear (Clear); Bacteria,Urine Occasional /hpf; Bilirubin,Urine Negative (Negative); Blood,Urine Negative (Negative); Color,Urine Yellow; Glucose,Urine (UA) Negative (Negative); Ketones,Urine Negative (Negative); Leukocyte Esterase,Urine Large (Negative); Mucus,Urine Rare /hpf; Nitrite,Urine Positive (Negative); PH, Urine 5.5 (5.0-8.0); Protein,Urine Trace (Negative); RBC,Urine 3 /hpf (0-5); Specific Gravity,Urine 1.026 (1.001-1.035); Squamous Epithelial Cell,Urine 1 /hpf (0-4); Urobilinogen,Urine <2.0 mg/dL (<2.0); WBC,Urine 56 /hpf (0-5)
[2019-07-06 01:02] LABS: Creatinine,Urine Random 180.9 mg/dL
[2019-07-06 01:06] LABS: Total Protein,Urine Random 30.4 mg/dL (0.0-13.5)
[2019-07-06 01:23] LABS: Iron Saturation 18.53 (12.00-45.00)
[2019-07-06 01:32] LABS: Vitamin D 25 Hydroxy 22.1 ng/mL (30.0-100.0)
[2019-07-06 01:39] LABS: African American GFR (CKD) 46.2 (60.0-200.0); Anion Gap 9.6 mmol/L (4.00-12.00); BUN/Creat Ratio 25.71 Ratio (12.00-20.00); Calcium 9.2 mg/dL (8.7-10.3); Carbon Dioxide 23.4 mmol/L (21.6-31.8); Magnesium 1.9 mg/dL (1.5-2.4); Potassium 4.2 mmol/L (3.5-5.5); Uric Acid 5.6 mg/dL (2.9-7.7)
== END | disposition home or self-care (01) ==
LOC: LABWHC1 16:08
PROVIDERS: ATTEND Nurse Practitioner Family
DX: N18.3 Chronic kidney disease, stage 3 (moderate) (principal); D63.1 Anemia in chronic kidney disease; N25.81 Secondary hyperparathyroidism of renal origin; M10.9 Gout, unspecified; E55.9 Vitamin D deficiency, unspecified; N39.0 Urinary tract infection, site not specified
CPT/HCPCS: 36415; 80048; 81001; 82306; 82570; 82728; 83540; 83550; 83735; 83970; 84100; 84156; 84550; 85027

== ENCOUNTER → 2019-08-03 | Outpatient (CLI) | payer MEDICARE ==
--- NOTE | 2019-08-03 11:53 | US ---
EXAMINATION TYPE: US kidneys/renal and bladder DATE OF EXAM: 08/03/2019 COMPARISON: NONE CLINICAL HISTORY: N18.3 CKD stage 3. EXAM MEASUREMENTS: Right Kidney: 9.1 x 4.5 x 4.8 cm Left Kidney: 8.4 x 4.7 x 4.2 Cm Only able to view kidney intercostally due to overlying bowel. Right Kidney: somewhat limited views due to overlying bowel Left Kidney: poorly visualized, mostly obscured by severe overlying bowel gas, atrophied Bladder: limited views IMPRESSION: 1. Limited views of the bilateral kidneys appear within normal limits.
== END | disposition home or self-care (01) ==
LOC: RADUSWWP 09:03
PROVIDERS: ATTEND Internal Medicine Nephrology
DX: N18.3 Chronic kidney disease, stage 3 (moderate) (principal)
CPT/HCPCS: 76770

== ENCOUNTER → 2019-10-31 | Outpatient (CLI) | payer MEDICARE ==
[2019-10-31 13:25] LABS: HCT 36.8 % (34.0-46.0); HGB 12.4 gm/dL (11.4-16.0); MCH 32.2 pg (25.0-35.0); MCHC 33.6 g/dL (31.0-37.0); MCV 95.8 fL (80.0-100.0); Mean Platelet Volume 7.2; Platelet Count 299 k/uL (150-450); RBC 3.84 m/uL (3.80-5.40); RDW 13.2 % (11.5-15.5); WBC 6.9 k/uL (3.8-10.6)
[2019-10-31 13:42] LABS: Appearance,Urine Clear (Clear); Bilirubin,Urine Negative (Negative); Blood,Urine Negative (Negative); Color,Urine Yellow; Glucose,Urine (UA) Negative (Negative); Ketones,Urine Trace (Negative); Leukocyte Esterase,Urine Negative (Negative); Mucus,Urine Occasional /hpf; Nitrite,Urine Negative (Negative); PH, Urine 5.5 (5.0-8.0); Protein,Urine 1+ (Negative); Specific Gravity,Urine 1.029 (1.001-1.035); Squamous Epithelial Cell,Urine 2 /hpf (0-4); WBC,Urine 2 /hpf (0-5)
[2019-10-31 13:59] LABS: Protein/Creatinine Ratio,Urine 0.1
[2019-10-31 19:16] LABS: % Iron Saturation 14.33 (12.00-45.00); African American GFR (CKD) 61.9 (60.0-200.0); Anion Gap 8.8 mmol/L (4.00-12.00); BUN/Creat Ratio 18.18 Ratio (12.00-20.00); Calcium 9.2 mg/dL (8.7-10.3); Carbon Dioxide 26.2 mmol/L (21.6-31.8); Non-African American GFR(CKD) 53.4 (60.0-200.0); Potassium 4.1 mmol/L (3.5-5.5)
[2019-10-31 19:26] LABS: Ferritin 68.8 ng/mL (10.0-291.0)
== END | disposition home or self-care (01) ==
LOC: LABWHC1 12:47
PROVIDERS: ATTEND Nurse Practitioner Family
DX: E55.9 Vitamin D deficiency, unspecified (principal); N39.0 Urinary tract infection, site not specified; E21.3 Hyperparathyroidism, unspecified; N25.81 Secondary hyperparathyroidism of renal origin; N18.3 Chronic kidney disease, stage 3 (moderate)
CPT/HCPCS: 36415; 80048; 81001; 82306; 82570; 82728; 83540; 83550; 83970; 84156; 85027